=== PATIENT | male | born 1955 | race Caucasian/White ===

== ENCOUNTER → 2020-02-08 | Outpatient (CLI) | payer MEDICARE, OTHER ==
[~2020-02-08] VITALS: Ht 177 cm; Wt 112.0 kg
[~2020-02-08] MED LIST: CATHETER FLUSH 10 ML SYR IV PRN; REGADENOSON 0.4 MG/5 ML SYR (LEXISCAN) IV ONE
[2020-02-08 15:40] VITALS: BP 143/87
--- NOTE | 2020-02-08 15:40 | Cardiology Stress Test Report ---
Stress Test Report Date of Procedure/Referring: Date of Procedure: Feb 08, 2020 PCP Ivelisse Romero Admitting Physician Prashant Phillips MD Indications: Hypertension Baseline Heart Rate: 76 Baseline Blood Pressure: Blood Pressure Systolic: 143 Blood Pressure Diastolic: 87 Baseline EKG: Baseline EKG: normal sinus rhythm Summary: Patient received 0.4 mg Lexiscan for stress test, ECG, heart rate and blood pressure were monitored continuously. Resting and stress dose of radio tracer were injected, imaging was acquired and reviewed in short axis, horizontal long axis and vertical long axis views. TID 1.09 SSS 4 SDS 3 EF 66 percent Conclusion: 1. Patient tolerated Lexiscan well 2. Diaphragmatic attenuation with no ischemia or infarction on SPECT images 3. Normal left ventricular size, Accolate ejection fraction 66 percent DARRYL FISHER MD Feb 08, 2020 15:40
== END ==
LOC: CARD 10:24
PROVIDERS: ATTEND Physician Assistant
DX: I08.1 Rheumatic disorders of both mitral and tricuspid valves (principal); I10 Essential (primary) hypertension; E78.2 Mixed hyperlipidemia; E66.9 Obesity, unspecified; I48.0 Paroxysmal atrial fibrillation
CPT/HCPCS: 78452; 93017; 93306

== ENCOUNTER → 2020-05-25 | Outpatient (CLI) | payer MEDICARE, OTHER ==
[~2020-05-25] MED LIST changes: -CATHETER FLUSH 10 ML SYR IV PRN; +HOLD METFORMIN - RECEIVED CONTRAST 20 ML VIAL IV SCH; +IOHEXOL 350 MG/ML 100 ML (OMNIPAQUE 350) VIAL IV ONE; +NS 100 ML (IVPB) BAG IV ONE; -REGADENOSON 0.4 MG/5 ML SYR (LEXISCAN) IV ONE; +RT-ALBUTEROL SULF 2.5 MG/3 ML PRE-MIX VIAL INH ONE
[2020-05-25 08:03] LABS: BUN/CREATININE RATIO 14; CREATININE SERUM 1.04 MG/DL (0.60-1.30); GFR ESTIMATED > 60
--- NOTE | 2020-05-25 13:10 | Diagnostic Imaging Report ---
PROCEDURE: CT chest with contrast only. TECHNIQUE: Multiple contiguous axial images were obtained through the chest after administration of intravenous contrast. Auto Exposure Controls were utilized during the CT exam to meet ALARA standards for radiation dose reduction. INDICATION: Dyspnea. There are no prior studies for comparison. FINDINGS: The heart size is within normal limits. There are no clear coronary artery calcifications evident. There is a right-sided pacemaker in place. The pacer lead seem to be in good position. The aorta is not abnormally dilated and there is no sign of dissection. The pulmonary arteries are not fully opacified but there is no defect within the pulmonary arteries to indicate a pulmonary embolus. There is no mediastinal or hilar adenopathy. The thyroid gland is generally unremarkable. The lungs are generally clear. There is no evidence for failure, pneumonia or for a pleural effusion. There is no parenchymal lung mass identified. The sections through the upper abdomen failed to show any sign of an acute abnormality. The liver is of lower density than usually seen. This does this does suggest fatty metamorphosis. Also, there is a 1.5 cm low density nodules associated with the left kidney. This may represent a cyst. A solid lesion cannot be entirely excluded, however. Ultrasound would be recommended to better characterize this finding. There is increased density in both retroareolar regions. This may be secondary to gynecomastia. Clinical follow-up is recommended. IMPRESSION: 1. There is no evidence for an acute cardiopulmonary abnormality. 2. Ultrasound would be recommended to better characterize the small benign-appearing low density lesion associated with the left kidney. 3. The Increased density in the retroareolar regions does suggest gynecomastia. Clinical follow-up is recommended. Dictated by: Dictated on workstation # [id number]
== END ==
LOC: RT 08:00
PROVIDERS: ATTEND Nurse Practitioner Family
DX: J98.4 Other disorders of lung (principal); G47.33 Obstructive sleep apnea (adult) (pediatric); N28.89 Other specified disorders of kidney and ureter; R92.0 Mammographic microcalcification found on diagnostic imaging of breast; Z87.891 Personal history of nicotine dependence
CPT/HCPCS: 36415; 71260; 82565; 84520; 94060; 94726; 94729

== ENCOUNTER → 2022-09-03 | Outpatient (CLI) | payer MEDICARE, OTHER ==
[~2022-09-03] MED LIST changes: +CATHETER FLUSH 10 ML SYR IVP PRN; -HOLD METFORMIN - RECEIVED CONTRAST 20 ML VIAL IV SCH; -IOHEXOL 350 MG/ML 100 ML (OMNIPAQUE 350) VIAL IV ONE; -NS 100 ML (IVPB) BAG IV ONE; +REGADENOSON 0.4 MG/5 ML SYR (LEXISCAN) IV ONE; -RT-ALBUTEROL SULF 2.5 MG/3 ML PRE-MIX VIAL INH ONE
[2022-09-03 13:40] VITALS: BP 165/99
--- NOTE | 2022-09-03 17:20 | Cardiology Stress Test Report ---
Stress Test Report Date of Procedure/Referring: Date of Procedure: Sep 03, 2022 PCP Prashant Phillips MD Admitting Physician Admitting Physician: Attending Physician: Darryl Carbajal MD Indications: CP Baseline Heart Rate: 78 Baseline Blood Pressure: Blood Pressure Systolic: 165 Blood Pressure Diastolic: 99 Baseline Vitals Vital Signs Date Time Temp Pulse Resp B/P (MAP) Pulse Ox O2 Delivery O2 Flow Rate FiO2 09/03/22 13:40 81 165/99 (121) Baseline EKG: Baseline EKG: NSR Summary After explaining the procedure to the patient, he signed a consent and then brought to the stress nuclear laboratory. Patient received 0.4 mg Lexiscan for stress test, ECG, heart rate and blood pressure were monitored continuously. Resting and stress dose of radio tracer were injected, imaging was acquired and reviewed in short axis, horizontal long axis and vertical long axis views. TID: 1.07 SSS: 3 SDS: 3 EF: 76 1. Patient tolerated Lexiscan well 2. Diaphragmatic attenuation with typical male pattern, no significant ischemia or infarction noted on SPECT images 3. Normal left ventricular size, ejection fraction 76% CC DARRYL Gómez MD Sep 03, 2022 17:20
== END ==
LOC: CARD 11:30
PROVIDERS: ATTEND Internal Medicine Cardiovascular Disease
DX: I11.9 Hypertensive heart disease without heart failure (principal); I34.0 Nonrheumatic mitral (valve) insufficiency; I25.10 Atherosclerotic heart disease of native coronary artery without angina pectoris
CPT/HCPCS: 78452; 93017; A9502; C8929; 93306